=== PATIENT | female | born 1995 | race African-American/Black ===

== ENCOUNTER 2020-09-09 19:02 | Emergency (ER) | payer OTHER ==
[~2020-09-09] VITALS: Ht 165.1 cm; Wt 49.9 kg
[2020-09-09 19:47] LABS: URINE BILIRUBIN NEGATIVE (Negative); URINE BLOOD NEGATIVE (Negative); URINE CLARITY CLEAR; URINE COLOR YELLOW; URINE GLUCOSE-RANDOM* NEGATIVE (Negative); URINE KETONES NEGATIVE (Negative); URINE LEUKOCYTES-REFLEX NEGATIVE (Negative); URINE NITRITE-REFLEX NEGATIVE (Negative); URINE PROTEIN (DIPSTICK) NEGATIVE (Negative); URINE SPECIFIC GRAVITY >= 1.030 (1.005-1.035)
[2020-09-09] MEDS ORDERED: DOXYCYCLINE 10100 MG PO (20:58)
[2020-09-09 21:24] VITALS: BP 102/69
== END 2020-09-09 21:41 | disposition home or self-care (01) ==
LOC: ER 19:02
PROVIDERS: Emergency Medicine
DX: M54.5 Low back pain (principal); Z11.3 Encounter for screening for infections with a predominantly sexual mode of transmission; M25.522 Pain in left elbow; F12.90 Cannabis use, unspecified, uncomplicated; V09.9XXA Pedestrian injured in unspecified transport accident, initial encounter; Y93.01 Activity, walking, marching and hiking; Y92.413 State road as the place of occurrence of the external cause; Y99.9 Unspecified external cause status